=== PATIENT | female | born 1995 | race Two or more races ===

== ENCOUNTER 2019-08-11 12:27 | Emergency (ER) | payer MEDICAID ==
[~2019-08-11] VITALS: Ht 182.9 cm; Wt 111.1 kg
[~2019-08-11 12:27] MED LIST: PREN27TA7 OR
[2019-08-11 12:34] VITALS: BP 132/77
== END 2019-08-11 15:06 | disposition home or self-care (01) ==
LOC: ER 12:27
DX: S16.1XXA Strain of muscle, fascia and tendon at neck level, initial encounter (principal); X50.1XXA Overexertion from prolonged static or awkward postures, initial encounter; Y93.C1 Activity, computer keyboarding; Y92.89 Other specified places as the place of occurrence of the external cause; Y99.8 Other external cause status